=== PATIENT | male | born 1980 | race African-American/Black ===

== ENCOUNTER 2017-08-12 17:05 | Inpatient (IN) | payer OTHER ==
[2017-08-12 18:16] VITALS: BMI 24.6
--- NOTE | 2017-08-12 20:57 | HP ---
COWS - Scale Resting Pulse: 0= [place] 80 or Below Sweatin= Chills/Flushing Restless Observation: 5= Unable to Sit Still Pupil Size: 0= Normal to Room Light Bone or Joint Aches: 4=Acute Joint/Muscle Pain Runny Nose/ Eye Tearin= Runny Nose/Eyes GI Upset > 30mins: 0= None Tremor Observation: 1= Tremor [place], Not Seen Yawning Observation: 1= 1-2x During Session Anxiety or Irritability: 2=Irritable/Anxious Goose Flesh Skin: 0=Smooth Skin COWS Score: [address] [facility] Chief Complaint: C/O WITHDRAWAL SX'S. SEEKING DETOX FOR OPIOID DEPENDENCE. Allergies/Adverse Reactions: Allergies Allergy/AdvReac Type Severity Reaction Status Date / Time No Known Allergies Allergy Verified 08/12/17 20:51 History of Present Illness: 36 Y.O. MALE WITH LONG HX/O OPIOID DEPENDENCE HERE FOR DETOX. THIS IS CLIENTS FIRST TIME HERE. HE IS KNOWN TO OTHER INPATIENT DETOX/REHAB SERVICES. LAST BEING 6 MONTHS AGO AT [facility]. DENIES ANY PMHX AND PSYCH. REFERRED BY A FRIEND. REPORTS LONGEST CLEAN TIME 1 YEAR. DENIES LEGALS. Exam Limitations: No Limitations - Ebola screening Have you traveled outside of the country in the last 21 days: No Have you had contact with anyone from an Ebola affected area: No Have you been sick,other than usual withdrawal symptoms: No Do you have a fever: No - Review of Systems Constitutional: Chills, Malaise, Night Sweats, Unintentional Wgt. Loss EENT: reports: Nose Congestion, Other (RINORRHEA) Cardiac: reports: No Symptoms Reported GI: reports: Poor Fluid Intake : reports: No Symptoms Reported Musculoskeletal: reports: Joint Pain Integumentary: reports: No Symptoms Reported Neuro: reports: No Symptoms reported Endocrine: reports: No Symptoms Reported Hematology: reports: No Symptoms Reported Psychiatric: reports: No Sypmtoms Reported Other Systems: Reviewed and Negative Patient History - Patient Medical History Hx Anemia: No Hx Asthma: No Hx Chronic Obstructive Pulmonary Disease (COPD): No Hx Cancer: No Hx Cardiac Disorders: No Hx Congestive Heart Failure: No Hx Hypertension: No Hx Hypercholesterolemia: No Hx Pacemaker: No HX Cerebrovascular Accident: No Hx Seizures: No Hx Dementia: No Hx Diabetes: No Hx Gastrointestinal Disorders: No Hx Liver Disease: No Hx Genitourinary Disorders: No Hx Sexually Transmitted Disorders: No Hx Renal Disease (ESRD): No Hx Thyroid Disease: No Hx Human Immunodeficiency Virus (HIV): No Hx Hepatitis C: No Hx Depression: No Hx Suicide Attempt: No Hx Bipolar Disorder: No Hx Schizophrenia: No Other Medical History: DENIES - Patient Surgical History Past Surgical History: No - PPD History Previous Implant?: Yes Documented Results: Negative w/o proof Implanted On Prior [facility] Admission?: No PPD to be Administered?: Yes - Smoking Cessation Smoking history: Current every day smoker Have you smoked in the past 12 months: Yes Aproximately how many cigarettes per day: 20 Cigars Per Day: 0 Hx Chewing Tobacco Use: No Initiated information on smoking cessation: Yes 'Breaking Loose' booklet given: 08/12/17 - Substance & Tx. History Hx Alcohol Use: No Hx Substance Use: Yes Substance Use Type: Heroin Hx Substance Use Treatment: Yes ([facility]) - Substances Abused HEROIN Route: Inhalation Frequency: Daily Amount used: 15 BAGS Age of first use: 30 Date of Last Use: 08/12/17 Family Disease History - Family Disease History Family History: Denies Admission Physical Exam S - Vital Signs Vital Signs: Vital Signs - 24 hr 08/12/17 18:15 Temperature 97 F L Pulse Rate 79 Respiratory 20 Rate Blood Pressure 122/74 - Physical General Appearance: Yes: Appropriately Dressed, Tremorous, Sweating, Other ( FLAT AFFECT) HEENTM: Yes: EOMI, Normocephalic, Normal Voice, PETROS, Pharynx Normal, Nasal Congestion, Rhinorrhea, Other (PORR DENTITION) Respiratory: Yes: Chest Non-Tender, Lungs Clear, Normal Breath Sounds, No Respiratory Distress, No Accessory Muscle Use Neck: Yes: No masses,lesions,Nodules, Supple, Trachea in good position Breast: Yes: Breast Exam Deferred Cardiology: Yes: Regular Rhythm, Regular Rate, S1, S2 Abdominal: Yes: Normal Bowel Sounds, Non Tender, Flat, Soft Genitourinary: Yes: Within Normal Limits (DENIES C/O) Back: Yes: Normal Inspection Musculoskeletal: Yes: full range of Motion, Gait Steady, Other (JOINT PAIN) Extremities: Yes: Normal Range of Motion, Non-Tender, Tremors Neurological: Yes: Alert, Motor Strength 5/5, Depressed Affect Integumentary: Yes: Warm, Diaphoresis (NOTED TO FOREHEAD), Other (POOR SKIN TUGOR) Lymphatic: Yes: Within Normal Limits - Diagnostic (1) Opioid dependence with withdrawal Current Visit: Yes Status: Chronic (2) Nicotine dependence Current Visit: Yes Status: Chronic Qualifiers: Nicotine product type: cigarettes Substance use status: uncomplicated Qualified Code(s): F17.210 - Nicotine dependence, cigarettes, uncomplicated (3) Skin turgor poor Current Visit: Yes Status: Acute (4) Depressed affect Current Visit: Yes Status: Acute Cleared for Admission [facility] - Detox or Rehab [facility] Level of Care: Medically Managed Detox Regimen/Protocol: Methadone Claeared for Rehab Admission: No S Breath Alcohol Content Breath Alcohol Content: 0 Urine Drug Screen - Results Drug Screen Negative: No Urine Drug Screen Results: OPI-Opiates
[2017-08-12] MEDS ORDERED: P-EPHED 60MG/TRIPROLIDI 2.5MG TABLET PO PRN (21:07)
[2017-08-12] MEDS ORDERED: MENTHOL/PHENOL 1 EACH UD MM PRN (21:07)
[2017-08-12] MEDS ORDERED: MAGNESIUM CITRATE 300 ML BOTTLE PO PRN (21:07)
[2017-08-12] MEDS ORDERED: LOPERAMIDE HCL 2 MG CAPSULE PO PRN (21:07)
[2017-08-12] MEDS ORDERED: METHADONE HCL 10 MG TABLET (FOR DETOX USE ONLY) PO ONE ×3 (21:07→23:30)
[2017-08-12] MEDS ORDERED: NICOTINE POLACRILEX 4 MG GUM BC PRN (21:07)
[2017-08-12] MEDS ORDERED: guaiFENesin/D-METHORPHAN HB 10 ML UNIT-DOSE CUPS PO PRN (21:07)
[2017-08-12] MEDS ORDERED: IBUPROFEN 400 MG TABLET (FP) PO PRN (21:07)
[2017-08-12] MEDS ORDERED: MAGNESIUM HYDROX 2400MG/30ML ORAL SUSPENSION 30 ML CUP PO PRN (21:07)
[2017-08-12] MEDS ORDERED: MAG HYDROX/AL HYDROX/SIMETH 30 ML UNIT-DOSE CUP PO PRN (21:07)
[2017-08-12] MEDS ORDERED: ACETAMINOPHEN 325 MG TABLET (FP) PO PRN (21:07)
[2017-08-12] MEDS ORDERED: MELATONIN 5 MG TABLETS PO PRN (22:00)
[2017-08-12] MEDS: diazePAM 5 MG TABLET PO PRN (23:39)
[2017-08-12] MEDS: THIAMINE HCL 100 MG TABLET (FP) PO SCH (23:43)
[2017-08-13 00:22] LABS: URINE APPEARANCE SLCLOUDY; URINE BILIRUBIN NEGATIVE (<2.0 mg/dL); URINE BLOOD NEGATIVE (NEGATIVE); URINE COLOR YELLOW; URINE GLUCOSE (UA) NEGATIVE (NEGATIVE); URINE KETONE NEGATIVE (NEGATIVE); URINE NITRITE NEGATIVE (NEGATIVE); URINE PROTEIN NEGATIVE (NEGATIVE)
[2017-08-13 00:38] LABS: URINE LEUK ESTERASE 2+ (NEGATIVE)
[2017-08-13 00:42] LABS: EPI CELLS RARE /HPF (FEW); URINE MUCUS RARE
[2017-08-13] MEDS: diazePAM 5 MG TABLET PO PRN ×2 (07:28→22:24)
[2017-08-13] MEDS ORDERED: PRENATAL VITAMINS W/ FOLIC ACID TABLET (FP) PO SCH (10:00)
[2017-08-13] MEDS ORDERED: NICOTINE 21 MG/24 HOURS TOPICAL PATCH TD SCH (10:00)
[2017-08-13] MEDS ORDERED: METHADONE HCL 10 MG TABLET (FOR DETOX USE ONLY) PO ONE (10:00)
[2017-08-13 10:12] LABS: HEMATOCRIT 48.6 % (35.4-49); MCH 30.5 pg (25.7-33.7); MCHC 32.9 g/dl (32.0-35.9); MEAN CELL VOLUME 92.6 fl (80-96); MEAN PLT VOLUME 9.4 fl (7.5-11.1); PLATELET COUNT 220 K/MM3 (134-434); RBC 5.25 M/mm3 (4.00-5.60); RDW 13.7 % (11.9-15.9); WHITE BLOOD COUNT 5.3 K/mm3 (4.0-10.0)
[2017-08-13 10:25] LABS: SODIUM 139 mmol/L (136-145)
[2017-08-13 10:26] LABS: CHLORIDE 104 mmol/L (98-107); POTASSIUM 5.2 mmol/L (3.5-5.1)
[2017-08-13 10:34] LABS: ALBUMIN 4.3 g/dl (3.4-5.0); ALK PHOS 89 U/L (45-117); ANION GAP 4 (8-16); BILIRUBIN,TOTAL 0.3 mg/dL (0.2-1.0); BLOOD UREA NITROGEN 15 mg/dL (7-18); CALCIUM 9.7 mg/dL (8.5-10.1); CO2 31 mmol/L (21-32); CREATININE 1.2 mg/dL (0.7-1.3); GLUCOSE,RANDOM 103 mg/dL (74-106); SGOT/AST 36 U/L (15-37); SGPT/ALT 44 U/L (12-78); TOT PROT 7.8 g/dl (6.4-8.2)
--- NOTE | 2017-08-13 11:38 | CONSULT ---
[facility] Psychiatric Consult - Data Date of interview: 08/13/17 Admission source: [facility] Identifying data: Pt. is a 36 year single male, father of two, unemployed, and currently living with "someone." This is patient's first admission to [facility]. Pt. admitted to for opiate dependence. Substance Abuse History: Following information confirmed with Mr. Doss: - Smoking Cessation. Smoking history: Current every day smoker. Have you smoked in the past 12 months: Yes. Aproximately how many cigarettes per day: 20. Cigars Per Day: 0. Hx Chewing Tobacco Use: No. Initiated information on smoking cessation: Yes. 'Breaking Loose' booklet given: 08/12/17. - Substance & Tx. History. Hx Alcohol Use: No. Hx Substance Use: Yes. Substance Use Type : Heroin. Hx Substance Use Treatment: Yes ([facility]). - Substances Abused. HEROIN. Route: Inhalation. Frequency: Daily. Amount used: 15 BAGS. Age of first use: 30. Date of Last Use: 08/12/17 Medical History: Denies. Psychiatric History: Pt. presents as guarded. Pt. denies h/o psychiatric hospitalizations, outpatient care, and suicide attempt. Physical/Sexual Abuse/Trauma History: Denies. Mental Status Exam - Mental Status Exam Alert and Oriented to: Time, Place, Person Cognitive Function: Good Patient Appearance: Well Groomed Mood: Withdrawn Affect: Mood Congruent Patient Behavior: Guarded Speech Pattern: Appropriate, Delayed Voice Loudness: Moderately Soft/Quiet Thought Process: Goal Oriented Thought Disorder: Not Present Hallucinations: Denies Suicidal Ideation: Denies Homicidal Ideation: Denies Insight/Judgement: Poor Sleep: Poorly Appetite: Fair Muscle strength/Tone: Normal Gait/Station: Normal Psychiatric Findings - Problem List ([place] 1, 2,3) (1) Substance induced mood disorder Current Visit: Yes Status: Acute (2) Nicotine dependence Current Visit: Yes Status: Chronic Qualifiers: Nicotine product type: cigarettes Substance use status: uncomplicated Qualified Code(s): F17.210 - Nicotine dependence, cigarettes, uncomplicated (3) Opioid dependence with withdrawal Current Visit: Yes Status: Acute (4) Insomnia Current Visit: Yes Status: Acute - Initial Treatment Plan Initial Treatment Plan: Psychoeducation provided. Detoxification in progress. Melatonin 5mg ordered for insomnia by GUARD MANAGER. Observation.
--- NOTE | 2017-08-13 12:30 | PN ---
S COWS - Scale Resting Pulse: 0= [place] 80 or Below Sweatin= Chills/Flushing Restless Observation: 1= Difficult to Sit Still Pupil Size: 1= Pupils >than Normal Bone or Joint Aches: 2= Severe Diffuse Aches Runny Nose/ Eye Tearin= Nasal Congestion GI Upset > 30mins: 2= Nausea/Diarrhea Tremor Observation of Outstretched Hands: 2= Slight Tremor Visible Yawning Observation: 2= >3x During Session Anxiety or Irritability: 2=Irritable/Anxious Goose Flesh Skin: 0=Smooth Skin COWS Score: 14 [facility] Progress Note (SOAP) Subjective: sweat tremor anxiety restlessness hot/chills gi distress Objective: 08/13/17 12:33 Vital Signs Temperature 98.2 F 08/13/17 10:17 Pulse Rate 75 08/13/17 10:17 Respiratory Rate 16 08/13/17 10:17 Blood Pressure 152/85 08/13/17 10:17 O2 Sat by Pulse Oximetry (%) Laboratory Last Values WBC 5.3 K/mm3 (4.0-10.0) 08/13/17 08:30 RBC 5.25 M/mm3 (4.00-5.60) 08/13/17 08:30 Hgb 16.0 GM/dL (11.7-16.9) 08/13/17 08:30 Hct 48.6 % (35.4-49) 08/13/17 08:30 MCV 92.6 fl (80-96) 08/13/17 08:30 MCH 30.5 pg (25.7-33.7) 08/13/17 08:30 MCHC 32.9 g/dl (32.0-35.9) 08/13/17 08:30 RDW 13.7 % (11.9-15.9) 08/13/17 08:30 Plt Count 220 K/MM3 (134-434) 08/13/17 08:30 MPV 9.4 fl (7.5-11.1) 08/13/17 08:30 Sodium 139 mmol/L (136-145) 08/13/17 08:30 Potassium 5.2 mmol/L (3.5-5.1) H 08/13/17 08:30 Chloride 104 mmol/L (98-107) 08/13/17 08:30 Carbon Dioxide 31 mmol/L (21-32) 08/13/17 08:30 Anion Gap 4 (8-16) L 08/13/17 08:30 BUN 15 mg/dL (7-18) 08/13/17 08:30 Creatinine 1.2 mg/dL (0.7-1.3) 08/13/17 08:30 Creat Clearance w eGFR > 60 (>60) 08/13/17 08:30 Random Glucose 103 mg/dL (74-106) 08/13/17 08:30 Calcium 9.7 mg/dL (8.5-10.1) 08/13/17 08:30 Total Bilirubin 0.3 mg/dL (0.2-1.0) 08/13/17 08:30 AST 36 U/L (15-37) 08/13/17 08:30 ALT 44 U/L (12-78) 08/13/17 08:30 Alkaline Phosphatase 89 U/L (45-117) 08/13/17 08:30 Total Protein 7.8 g/dl (6.4-8.2) 08/13/17 08:30 Albumin 4.3 g/dl (3.4-5.0) 08/13/17 08:30 Urine Color Yellow 08/12/17 00:00 Urine Appearance Slcloudy 08/12/17 00:00 Urine pH 6.0 (5.0-8.0) 08/12/17 00:00 Ur Specific [place] 1.025 (1.001-1.035) 08/12/17 00:00 Urine Protein Negative (NEGATIVE) 08/12/17 00:00 Urine Glucose (UA) Negative (NEGATIVE) 08/12/17 00:00 Urine Ketones Negative (NEGATIVE) 08/12/17 00:00 Urine Blood Negative (NEGATIVE) 08/12/17 00:00 Urine Nitrite Negative (NEGATIVE) 08/12/17 00:00 Urine Bilirubin Negative (<2.0 mg/dL) 08/12/17 00:00 Urine Urobilinogen 2.0 mg/dL (0.2-1.0) 08/12/17 00:00 Ur Leukocyte Esterase 2+ (NEGATIVE) H 08/12/17 00:00 Urine WBC (Auto) 34 /hpf (3-5) 08/12/17 00:00 Urine RBC (Auto) 4 /hpf (0-3) 08/12/17 00:00 Ur Epithelial Cells Rare /HPF (FEW) 08/12/17 00:00 Urine Mucus Rare 08/12/17 00:00 lab noted 08/13/17 12:35 repeat K+ Assessment: 08/13/17 12:34 withdrawal sx Plan: continue detox repeat K+
[2017-08-13] MEDS: amLODIPine BESYLATE 5 MG TABLET (FP) PO SCH ×2 (13:32→22:22)
--- NOTE | 2017-08-13 16:58 | EKG ---
Test Reason : Blood Pressure : / mmHG Vent. Rate : 060 BPM Atrial Rate : 060 BPM P-R Int : 144 ms QRS Dur : 082 ms QT Int : 402 ms P-R-T Axes : 058 075 022 degrees QTc Int : 402 ms NORMAL SINUS RHYTHM WITH SINUS ARRHYTHMIA POSSIBLE LEFT ATRIAL ENLARGEMENT BORDERLINE ECG NO PREVIOUS ECGS AVAILABLE Confirmed by MD Nita, Adriel ([id number]) on 08/13/2017 4:57:55 PM Referred By: Confirmed By:Adriel Moya MD
[2017-08-13] MEDS: THIAMINE HCL 100 MG TABLET (FP) PO SCH (22:22)
[2017-08-14] MEDS: diazePAM 5 MG TABLET PO PRN (03:50)
--- NOTE | 2017-08-14 09:20 | DS ---
[facility] Detox Discharge Summary Admission Date: 08/12/17 Discharge Date: 08/14/17 - History Present History: Opioid Dependence Additional Comments: 36 years old male admitted 08/09/17 for opioid withdrawal sx patient wants to terminate the detox regimen because "she is leaving" patient is alert oriented x 3 no acute distress just wants "together with her" denies suicidal denies homocidal no self destructive behavior health teaching on addiction and self management - Physical Exam Results Vital Signs: Vital Signs Temperature 98.2 F 08/14/17 06:00 Pulse Rate 58 L 08/14/17 06:00 Respiratory Rate 18 08/14/17 06:00 Blood Pressure 141/76 08/14/17 06:00 O2 Sat by Pulse Oximetry (%) Pertinent Admission Physical Exam Findings: withdrawal sx Vital Signs Temperature 98.2 F 08/14/17 06:00 Pulse Rate 58 L 08/14/17 06:00 Respiratory Rate 18 08/14/17 06:00 Blood Pressure 141/76 08/14/17 06:00 O2 Sat by Pulse Oximetry (%) Laboratory Last Values WBC 5.3 K/mm3 (4.0-10.0) 08/13/17 08:30 RBC 5.25 M/mm3 (4.00-5.60) 08/13/17 08:30 Hgb 16.0 GM/dL (11.7-16.9) 08/13/17 08:30 Hct 48.6 % (35.4-49) 08/13/17 08:30 MCV 92.6 fl (80-96) 08/13/17 08:30 MCH 30.5 pg (25.7-33.7) 08/13/17 08:30 MCHC 32.9 g/dl (32.0-35.9) 08/13/17 08:30 RDW 13.7 % (11.9-15.9) 08/13/17 08:30 Plt Count 220 K/MM3 (134-434) 08/13/17 08:30 MPV 9.4 fl (7.5-11.1) 08/13/17 08:30 Sodium 139 mmol/L (136-145) 08/13/17 08:30 Potassium 5.2 mmol/L (3.5-5.1) H 08/13/17 08:30 Chloride 104 mmol/L (98-107) 08/13/17 08:30 Carbon Dioxide 31 mmol/L (21-32) 08/13/17 08:30 Anion Gap 4 (8-16) L 08/13/17 08:30 BUN 15 mg/dL (7-18) 08/13/17 08:30 Creatinine 1.2 mg/dL (0.7-1.3) 08/13/17 08:30 Creat Clearance w eGFR > 60 (>60) 08/13/17 08:30 Random Glucose 103 mg/dL (74-106) 08/13/17 08:30 Calcium 9.7 mg/dL (8.5-10.1) 08/13/17 08:30 Total Bilirubin 0.3 mg/dL (0.2-1.0) 08/13/17 08:30 AST 36 U/L (15-37) 08/13/17 08:30 ALT 44 U/L (12-78) 08/13/17 08:30 Alkaline Phosphatase 89 U/L (45-117) 08/13/17 08:30 Total Protein 7.8 g/dl (6.4-8.2) 08/13/17 08:30 Albumin 4.3 g/dl (3.4-5.0) 08/13/17 08:30 Urine Color Yellow 08/12/17 00:00 Urine Appearance Slcloudy 08/12/17 00:00 Urine pH 6.0 (5.0-8.0) 08/12/17 00:00 Ur Specific [place] 1.025 (1.001-1.035) 08/12/17 00:00 Urine Protein Negative (NEGATIVE) 08/12/17 00:00 Urine Glucose (UA) Negative (NEGATIVE) 08/12/17 00:00 Urine Ketones Negative (NEGATIVE) 08/12/17 00:00 Urine Blood Negative (NEGATIVE) 08/12/17 00:00 Urine Nitrite Negative (NEGATIVE) 08/12/17 00:00 Urine Bilirubin Negative (<2.0 mg/dL) 08/12/17 00:00 Urine Urobilinogen 2.0 mg/dL (0.2-1.0) 08/12/17 00:00 Ur Leukocyte Esterase 2+ (NEGATIVE) H 08/12/17 00:00 Urine WBC (Auto) 34 /hpf (3-5) 08/12/17 00:00 Urine RBC (Auto) 4 /hpf (0-3) 08/12/17 00:00 Ur Epithelial Cells Rare /HPF (FEW) 08/12/17 00:00 Urine Mucus Rare 08/12/17 00:00 RPR Titer Nonreactive (NONREACTIVE) 08/13/17 08:30 lab noted - Treatment Hospital Course: Detox Protocol Followed, Responded well Patient has Accepted a Rehab Referral to: [facility] - Medication Discharge Medications: Ambulatory Orders NK [No Known Home Medication] 08/12/17 - Diagnosis (1) Opioid dependence with withdrawal Current Visit: Yes Status: Acute (2) Nicotine dependence Current Visit: Yes Status: Acute Qualifiers: Nicotine product type: cigarettes Substance use status: in withdrawal Qualified Code(s): F17.213 - Nicotine dependence, cigarettes, with withdrawal - AMA Did Patient Leave Against Medical Advice: Yes
[2017-08-14] MEDS ORDERED: METHADONE HCL 5 MG TABLET (FOR DETOX USE ONLY) PO ONE (10:00)
[2017-08-14 10:32] VITALS: BP 152/93; PULSE 82; TEMP 97.1
[2017-08-15] MEDS ORDERED: METHADONE HCL 5 MG TABLET (FOR DETOX USE ONLY) PO ONE (10:00)
[2017-08-16] MEDS ORDERED: METHADONE HCL 10 MG TABLET (FOR DETOX USE ONLY) PO ONE (10:00)
[2017-08-17] MEDS ORDERED: METHADONE HCL 5 MG TABLET (FOR DETOX USE ONLY) PO ONE (06:00)
== END 2017-08-14 10:00 | disposition left against medical advice (07) | DRG 770 ==
LOC: YASAS 17:05 → Y6N 20:22
PROVIDERS: ADMIT Internal Medicine; ATTEND Internal Medicine
PROC: HZ2ZZZZ Detoxification Services for Substance Abuse Treatment (ICD-10-PCS; principal; 2017-08-12)
DX: F11.23 Opioid dependence with withdrawal (principal); F17.213 Nicotine dependence, cigarettes, with withdrawal; F19.24 Other psychoactive substance dependence with psychoactive substance-induced mood disorder; G47.00 Insomnia, unspecified; R23.8 Other skin changes; R45.89 Other symptoms and signs involving emotional state
CPT/HCPCS: 36415; 80053; 81003; 81015; 84132; 85027; 86593; 93005; 93010